=== PATIENT | female | born 1965 | race Caucasian/White ===

== ENCOUNTER 2024-11-23 10:47 | Emergency (ER) | payer OTHER, SELFPAY ==
[2024-11-23 10:54] VITALS: BP 123/69; PULSE 69; RESP 18; TEMP 37; O2SAT 100
--- NOTE | 2024-11-23 11:47 | ED.SKABFB ---
HPI - Skin/Abscess/Foreign Bdy General Chief complaint: Skin/Abscess/Foreign Body Stated complaint: Insect Bite/left Ankle Time Seen by Provider: 11/23/24 11:00 Source: patient and RN notes reviewed Mode of arrival: ambulatory Limitations: no limitations History of Present Illness HPI narrative: 59-year-old female presents [facility] complaining possible bug bite to left ankle aproximally 2 days ago. Patient states she has a pruritic puncture wound to the left medial ankle. Patient says she was walking in the morning outside when she felt something bite her. Patient is concerned that is infected. Patient is unsure what bit her. Patient denies any fevers, body aches, chills, discharge, muscle aches, bruising, or any injury, or any other symptoms. Patient has not tried anything [id number] to help with the symptoms. Related Data Allergies Allergy/AdvReac Type Severity Reaction Status Date / Time No Known Allergies Allergy Verified 11/23/24 11:05 Review of Systems Review of Systems: CONSTITUTIONAL: Denies fever, chills, or sweats. EYES: Denies visual changes, redness, or discharge. ENT: Denies rhinorrhea, congestion, sore throat, or otalgia. CARDIOVASCULAR: Denies chest pain, palpitations, or edema. RESPIRATORY: Denies cough or dyspnea. GASTROINTESTINAL: Denies abdominal pain, nausea, vomiting, or diarrhea. GENITOURINARY: Denies dysuria or hematuria. SKIN: Denies rash. Positive for wound and itching. MUSCULOSKELETAL: Denies back pain, joint pain, or myalgia. NEUROLOGIC: Denies headache, numbness, or weakness. PSYCHIATRIC: Denies anxiety or depression. All other systems reviewed are negative, except as documented in HPI. PMFSH Comments At the time of my signature, I reviewed and agree with the nursing past medical, surgical, social, and family history. There is no relevant family history pertinent to the patient complaint. Exam Narrative: GENERAL: This is a well-nourished, well-developed adult, in no apparent distress. They are non ill-appearing, nontoxic appearing. HEAD: normocephalic, atraumatic. EYES: Sclera clear/white. Conjunctiva normal. Vision is grossly intact. Extraocular movements intact EARS: External ears normal, Hearing grossly intact. NOSE: External nose normal THROAT: Mucous membranes moist, NECK: Neck supple, CARDIOVASCULAR: Regular rate and rhythm RESPIRATORY: Respiratory rate normal, respiratory effort nonlabored, no respiratory distress SKIN: Left medial ankle: Erythematous, pruritic puncture wound measuring approximately 1.5 cm by 1 cm. There is no necrosis, eschar, bruising. Skin is not warm to touch, nontender. It is indurated. No area of fluctuance. NEURO: awake, alert, and oriented to person, place and time. There were no obvious focal neurologic abnormalities. EXTREMITIES: No joint tenderness, effusion, or edema noted. BACK: Nontender without deformity. Course Course Emergency Course: Portions of this record may have been created with voice recognition software Level of Care: Express Care Visit Vital Signs Vital signs: Vital Signs Temperature 98.6 F 11/23/24 10:54 Pulse Rate 69 11/23/24 10:54 Respiratory Rate 18 11/23/24 10:54 Blood Pressure 123/69 11/23/24 10:54 Pulse Oximetry 100 11/23/24 10:54 Oxygen Delivery Room Air 11/23/24 10:54 Temperature 98.6 F 11/23/24 10:54 Pulse Rate 69 11/23/24 10:54 Respiratory Rate 18 11/23/24 10:54 Blood Pressure 123/69 11/23/24 10:54 Pulse Oximetry 100 11/23/24 10:54 Oxygen Delivery Room Air 11/23/24 10:54 Reviewed MDM - Skin/Abscess/Foreign Bdy MDM Narrative Medical decision making narrative: Patient is unsure what bit her. No evidence of infection. Likely allergic reaction bug bite. Will prescribe mupirocin ointment for infection prevention. Discussed physical exam findings. Advised supportive measures and signs/symptoms to go to the ER. Pt is appropriate for outpt treatment and f/u. Differential Diagnosis Differential diagnosis: Likely cellulitis, insect bites and contact dermatitis Critical Care Time Critical Care Time Critical Care Time: No Discharge Plan Discharge Clinical Impression: Bug bite Qualifiers: Encounter type: initial encounter Qualified Code(s): W57.XXXA - Bitten or stung by nonvenomous insect and other nonvenomous arthropods, initial encounter Patient Disposition: Home Condition: Stable Instructions: Insect Bite or Sting (ED) Additional Instructions: Is likely you have a bug bite to her right ankle. It is common for bug bites a cause local swelling and a local allergic reaction to the her saliva. This is normally self-limiting and resolve on its own. There is no signs of infection to the bug bite. Please avoid itching the area as this may increase the risk of infection. Wash the skin daily with mild soap and water. Avoid dirty water until the wound is healed completely. May take Zyrtec or Claritin as needed for itchiness symptoms allergy symptoms. You may apply hydrocortisone cream to the affected area to help with swelling and itchiness. Use mupirocin ointment as directed to prevent infection. Follow-up with PCP in 1 week. If the redness and swelling becomes worse, you developed green yellow discharge, the wound becomes black, abnormal bruising, fevers, body aches, muscle aches, or any other concerns please go to the ER immediately. Patient Language: [place] Prescriptions: New mupirocin [Cent[place]] 2 % ointment 1 applic topical BID 7 Days Qty: 15 0RF Follow-up/Referrals: PHYSICIAN,COSTUMED CHARACTER [Primary Care Provider] - Time of Disposition: 11:13
== END 2024-11-23 11:15 | disposition home or self-care (01) ==
DX: S90.562A Insect bite (nonvenomous), left ankle, initial encounter (principal); W57.XXXA Bitten or stung by nonvenomous insect and other nonvenomous arthropods, initial encounter
CPT/HCPCS: 99203; G0463